=== PATIENT | female | born 1965 | race Caucasian/White ===

== ENCOUNTER 2018-03-22 15:45 | Emergency (ER) | payer MEDICAID ==
[~2018-03-22] VITALS: Ht 157.5 cm; Wt 81.6 kg
[2018-03-22 15:53] VITALS: Ht 157.5 cm; Wt 81.6 kg
[2018-03-22 17:13] VITALS: BP 130/84
== END 2018-03-22 17:13 | disposition home or self-care (01) ==
LOC: ED 15:45
PROC: 2W2DX4Z Dressing of Left Lower Arm using Bandage (ICD-10-PCS; principal; 2018-03-22)
PROC: 3E0234Z Introduction of Serum, Toxoid and Vaccine into Muscle, Percutaneous Approach (ICD-10-PCS; 2018-03-22)
DX: T23.272A Burn of second degree of left wrist, initial encounter (principal); X10.1XXA Contact with hot food, initial encounter; Y92.9 Unspecified place or not applicable
CPT/HCPCS: 90715; A4570

== ENCOUNTER 2019-05-24 13:25 | Emergency (ER) | payer MEDICAID ==
[~2019-05-24] VITALS: Ht 154.9 cm; Wt 83.5 kg
[2019-05-24 13:59] VITALS: BP 135/91; Ht 154.9 cm; Wt 83.5 kg
== END 2019-05-24 16:09 | disposition left against medical advice (07) ==
LOC: ED 13:25
DX: Z53.21 Procedure and treatment not carried out due to patient leaving prior to being seen by health care provider (principal)

== ENCOUNTER 2019-05-24 17:51 | Inpatient (IN) | payer MEDICAID ==
[~2019-05-24] VITALS: Ht 154.9 cm; Wt 80.7 kg
[2019-05-24 18:07] VITALS: Ht 154.9 cm; Wt 80.7 kg
--- NOTE | 2019-05-24 19:16 | NUR ---
DR. COLLADO AT BEDSIDE MSE
--- NOTE | 2019-05-24 19:30 | NUR ---
PT. ARRIVED TO ER C/O SWELLING & PAIN TO RIGHT CHEEK, PT. STATED SHE WENT TO THE DENTIST 4 DAYS AGO, SHE WAS GIVEN ANTIOBIOTICS, PT.STATES THE MEDICATION IS NOT HELPING AND SHE FEELS THAT IS SPREADING, SHE WENT TO DENTIST AGAIN TODAY, DENTIST REFERRED HER TO COME TO ER, PT. LAYING IN BED, 10/10 PAIN, SHARP X 4 DAYS, SWELLING NOTED ON RIGHT CHEEK, PT. DENIES TRAUMA, DENIES ANY DENTAL WORK, PT. STATES SHE WAST TOLD BY DENIES SHE HAS A VERY BAD INFECTION, DENIES N/V/D, DENIES FEVER & CHILLS, DENIES CHEST PAIN, DENIES URINARY SYMPTOMS, REPOSITIONED PT. FOR COMFORT, WILL MONITOR.
[2019-05-24 19:59] LABS: BASOPHIL % 0.4 % (0-2); PLATELET COUNT 318 x10^3mcL (130-400)
[2019-05-24 20:01] LABS: RED CELL DISTRIBUTION WIDTH 14.8 % (11.5-14.5)
[2019-05-24 20:13] LABS: CALCIUM 8.1 mg/dL (8.5-10.1); CARBON DIOXIDE 24.3 mmol/L (21-32); CREATININE SERUM 1.1 mg/dL (0.6-1.0); POTASSIUM SERUM 3.7 mmol/L (3.5-5.1)
--- NOTE | 2019-05-24 20:37 | NUR ---
PT. TO CT [facility]IA [facility]
[2019-05-24 21:10] LABS: ERYTHROCYTE SED RATE 21 mm/hr (0-30)
--- NOTE | 2019-05-24 22:34 | NUR ---
PT. LAYING IN BED, AAOX4, NO ACUTE DISTRESS NOTED, PT. STATES SHE IS FEELING A LITTLE BETTER WITHT THE PAIN MEDICATION, PAIN LEVEL HAS GONE DOWN TO 8/10, PENDING RESULTS, VSS, WILL MONITOR, REPOSITIONED FOR COMFORT, PT. DENIES DIFFICULTY SPEAKING OR SWALLOWING.
--- NOTE | 2019-05-24 23:17 | NUR ---
PT. C/O PAIN, 06/14, STATING IT IS GETTING WORSE AGAIN, MADE AWARE, NEW ORDER OBTAINED FOR PAIN MEDICATION, CARRIED OUT, PT. TOLERATED WELL, SEE EMAR WILL MONITOR.
--- NOTE | 2019-05-24 23:55 | NUR ---
REPORT GIVEN TO JEREMIAH OBREGON TO ASSUME PT CARE
[2019-05-25 00:29] VITALS: BP 98/50
--- NOTE | 2019-05-25 00:40 | NUR ---
RECEIVED PT FROM ER, PT ADMIT FOR FACIAL CELLULITIS, FAILED OUT PT ATB. PT IS A/O X4, VERBAL REPSONSIVE, LUNG SOUND CLEAR BILATERAL, NO COUGH, NO SOB, DENY ANY CHEST PAIN OR DISCOMFORT, BOWEL SOUND PRESENT ALL 4 QUADRANTS, NO DISTENTION, BUT PT C/O N/V, PT STATE HASN'T EAT FOR 4 DAYS DUE TO PAIN, DR. GOOD NOTED. PEDAL PULSE PRESENT BOTH FEET, NO EDEMA, IV AT LEFT AC, NO LEAKING, NO INFILTRAITON. PT'S RIGHT FACE IS SWELLING. ASSESS WITH DR. GOOD INSIDE THE MOUTH, THERE IS NO OPEN WOUND OR DRAINAGED NOTED. PT C/O RIGHT FACE 06/14, NORCO IS GIVEN TO PT. ALL ADLS ASSIST, ALL NEED MET, CALL LIGHT IN REACH, WILL CONTINUE TO MONITOR.
--- NOTE | 2019-05-25 00:40 | NUR ---
PT C/O R FACIAL PAIN 06/14. THROBBING FROM TOP OF HEAD TO R SIDE OF NECK. NORCO GIVEN PER ORDER. ALSO C/O NAUSEA, NO VOMITING. ZOFRAN GIVEN. ORIENTED TO DEVICES AND SURROUNDINGS. CALL LIGHT WITHIN REACH, BED AT LOWEST POSITION. WILL CONTINUE TO MONITOR.
[2019-05-25 01:07] LABS: microscopic required? NO
[2019-05-25 01:24] LABS: UA SPECIFIC GRAVITY <=1.005 (1.005-1.035); urine erythrocyte NEGATIVE (NEGATIVE)
--- NOTE | 2019-05-25 02:50 | NUR ---
PT RESTING IN BED WITH EYES CLOSED. LAYING ON R SIDE. NO SIGNS OF DISTRESS NOTED. BREATHING EVEN/UNLABORED ON RA. CALL LIGHT WITHIN REACH, BED AT LOWEST POSITION. WILL CONTINUE TO MONITOR.
--- NOTE | 2019-05-25 05:20 | NUR ---
PT RESTING IN BED WITH EYES CLOSED. SNORING. AWAKENS WITH TACTILE STIMULI. BREATHING EVEN/UNLABORED ON RA. DUE MEDS GIVEN. PT DENIES ANY PAIN AT THIS TIME. CALL LIGHT WITHIN REACH, BED AT LOWEST POSITION. WILL CONTINUE TO MONITOR.
[2019-05-25 05:42] VITALS: BP 94/49
--- NOTE | 2019-05-25 05:43 | NUR ---
BP 94/49, MAP 64, HR 74. PT DENIES ANY DIZZINESS OR LIGHTHEADEDNESS. DR. YUSUF MADE AWARE. NO CHANGES IN ORDERS. STATED TO LET HIM KNOW IF MAP DROPS LOWER.
--- NOTE | 2019-05-25 05:58 | NUR ---
ZOFRAN GIVEN FOR COMPLAINT OF NAUSEA. NO EMESIS. GUEST AT BEDSIDE. WILL MONITOR FOR RELIEF.
[2019-05-25 06:39] LABS: CALCIUM 7.8 mg/dL (8.5-10.1); CARBON DIOXIDE 21.2 mmol/L (21-32); CHLORIDE SERUM 104 mmol/L (98-107); GFR1 > 60 mL/min; GLUCOSE SERUM 101 mg/dL (74-106); POTASSIUM SERUM 3.9 mmol/L (3.5-5.1); SODIUM SERUM 136 mmol/L (136-145)
[2019-05-25 07:15] LABS: BASOPHIL % 0.3 % (0-2); PLATELET COUNT 300 x10^3mcL (130-400); RED CELL DISTRIBUTION WIDTH 14.9 % (11.5-14.5)
--- NOTE | 2019-05-25 07:47 | NUR ---
RECEIVED IN NO RESP. DISTRESS, AWAKE ALERT AND ORIENTED. BP SLIGHTLY LOW BUT PT ASYMPTOMATIC. DENIES LIGHTHEADED OR DIZZINESS. NO C/O PAIN OR DISCOMFORT AT THIS TIME.IVF INFUSING WELL AND SITE CLEAR. CALL LIGHT WITHIN REACH. WILL CONTINUE WITH PLAN OF CARE.
[2019-05-25 08:06] VITALS: BP 92/51
--- NOTE | 2019-05-25 12:39 | NUR ---
PT C/O RT FACIAL AND HEADACHE 06/14. MEDICATED WITH NORCO PER ORDER.
--- NOTE | 2019-05-25 15:42 | NUR ---
PT RESTING IN NO DISTRESS. NO C/O PAIN AT THIS TIME.
[2019-05-25 16:59] VITALS: BP 90/58
--- NOTE | 2019-05-25 18:25 | NUR ---
PT REMAINS IN NO DISTRESS, AWAKE, ALERT AND ORIENTED. NO C/O PAIN OR DISCOMFORT AT THIS TIME. VS WNL. IVF INFUSING WELL AND SITE CLEAR. FAMILY AT BEDSIDE. CALL LIGHT WITHIN REACH. WILL BE ENDORSED TO INCOMING SHIFT.
[2019-05-25 19:23] VITALS: BP 103/52
--- NOTE | 2019-05-25 19:25 | NUR ---
RECIEVED PT IN NO ACUTE DISTRESS. AOX4. MED SURG. BREATHING E/U. SWELLING NOTED TO R SIDE OF FACE. C/O FACIAL PAIN/HEADACHE 04/14, WILL MEDICATE PER EMAR. IV TO RFA, PATENT. BED IN LOWEST POSITION, 2 SIDE RAILS UP, CALL LIGHT IN REACH. INSTRUCTED TO CALL FOR ASSISTANCE.
--- NOTE | 2019-05-26 01:07 | NUR ---
RESTING IN BED WITH EYES CLOSED. BREATHING E/U. NO ACUTE DISTRESS NOTED. WILL CONTINUE TO MONITOR.
[2019-05-26 04:50] VITALS: BP 95/57
[2019-05-26 06:41] LABS: BASOPHIL % 0.6 % (0-2); PLATELET COUNT 268 x10^3mcL (130-400)
[2019-05-26 06:49] LABS: T3 TOTAL 0.89 ng/mL
[2019-05-26 06:50] LABS: CALCIUM 7.9 mg/dL (8.5-10.1); CARBON DIOXIDE 26.7 mmol/L (21-32); CHLORIDE SERUM 108 mmol/L (98-107); CREATININE SERUM 0.8 mg/dL (0.6-1.0); GFR1 > 60 mL/min; GLUCOSE SERUM 118 mg/dL (74-106); MAGNESIUM 1.8 mg/dL (1.8-2.4); PHOSPHOROUS 3.2 mg/dL (2.5-4.9); POTASSIUM SERUM 4.2 mmol/L (3.5-5.1); SODIUM SERUM 141 mmol/L (136-145)
[2019-05-26 07:10] LABS: FREE T4 1.04 ng/dL (0.76-1.46); FREE THYROXINE INDEX 2.5 ug/dL (1.4-4.5)
--- NOTE | 2019-05-26 07:26 | NUR ---
MEDICATED WITH NORCO X 3 OVERNIGHT WITH GOOD EFFECT FOR R FACIAL PAIN 04/14. NO ACUTE DISTRESS NOTED. NO ACUTE CHANGES. ENDORSED TO ONCOMING RN,
--- NOTE | 2019-05-26 07:30 | NUR ---
PT ENDORSE TO ME THIS MORNING, LAYING IN BED RESTING, AA/O X4, BREATHING EVEN AND UNLABORED ON RA, NO ACUTE RESP DISTRESS OR SOB NOTED. MEDSURG/ DENIES ANY CP OR PRESSURE. RIGHT SIDE OF FACE BY CHEEK AND RIGHT EYE SWELLING NOTED. VOIDS FREELY. AMB. IV TO THE L HAND INTACT AND PATENT/ NO REDNESS OR SWELLING NOTED/ INFUSING AT 125/ML/HR. CALL LIGHT IN REACH .BED IN LOW POSITTION. WILL CONTINUE TO MONITOR.
[2019-05-26 08:01] VITALS: BP 112/64
[2019-05-26 11:24] LABS: AMPHETAMINE QUAL UR POSITIVE (See below)
[2019-05-26 12:18] VITALS: BP 107/59
--- NOTE | 2019-05-26 13:12 | NUR ---
TALKED TO BESS MONTIEL, OK TO HANG VANCOCIN/ IS AWARE OF CURRENT VANCO TROUGH.
--- NOTE | 2019-05-26 14:50 | NUR ---
PT TOLERATED 100% OF REG DIET FOR LUNCH. NO N/V OR DISCOMFORT NOTED.
--- NOTE | 2019-05-26 16:04 | NUR ---
PT C/O OF RIGHT EYE AND FACE DISCOMFORT 10/10, MEDICATED PER EMAR.
[2019-05-26 16:48] VITALS: BP 115/53
--- NOTE | 2019-05-26 18:39 | NUR ---
NO ACUTE CHANGES AT THIS TIME. NO ACUTE RESP DISTRESS OR SOB NOTED. DENIES ANY CP OR PRESSURE.DENIES ANY RIGHT FACIAL PAIN OR DISCOMFORT/ STATED NORCO HELPED WITH PAIN. TOLERATED 100% OF DINNER. SUPPLIES GIVEN TO CLEAN UP. WILL ENDORSE TO INCOMING RN.
--- NOTE | 2019-05-26 19:30 | NUR ---
RECIEVED PT IN NO ACUTE DISTRESS. AOX4. MED SURG. BREATHING E/U. SWELLING NOTED TO R SIDE OF FACE. DENIES PAIN. IV TO LH, PATENT. SL TO LAC. BED IN LOWEST POSITION, 2 SIDE RAILS UP, CALL LIGHT IN REACH. INSTRUCTED TO CALL FOR ASSISTANCE.
[2019-05-26 19:34] VITALS: BP 106/67
--- NOTE | 2019-05-27 02:07 | NUR ---
RESTING WITH EYES CLOSED. BREATHING E/U. NO ACUTE DISTRESS NOTED. WILL CONTINUE TO MONITOR.
[2019-05-27 04:51] VITALS: BP 121/67
--- NOTE | 2019-05-27 06:22 | NUR ---
SWELLING TO R SIDE OF FACE IMPROVED. NO C/O PAIN OVERNIGHT. NO ACUTE DISTRESS NOTED. NO ACUTE CHANGES. WILL ENDORSE TO ONCOMING RN.
[2019-05-27 06:53] LABS: BASOPHIL % 0.6 % (0-2); PLATELET COUNT 266 x10^3mcL (130-400); RED CELL DISTRIBUTION WIDTH 14.6 % (11.5-14.5)
[2019-05-27 07:06] LABS: CALCIUM 7.8 mg/dL (8.5-10.1); CARBON DIOXIDE 26.4 mmol/L (21-32); CHLORIDE SERUM 108 mmol/L (98-107); CREATININE SERUM 0.8 mg/dL (0.6-1.0); GFR1 > 60 mL/min; GLUCOSE SERUM 98 mg/dL (74-106); MAGNESIUM 1.8 mg/dL (1.8-2.4); PHOSPHOROUS 2.8 mg/dL (2.5-4.9); POTASSIUM SERUM 3.4 mmol/L (3.5-5.1); SODIUM SERUM 143 mmol/L (136-145)
--- NOTE | 2019-05-27 07:30 | NUR ---
PT ENDORSE TO ME THIS MORNING,LAYING IN BED RESTING. AA/O X4, BREATHING EVEN AND UNLABORED ON RA, NO ACUTE RESP DISTRESS OR SOB NOTED. MEDSURG/ DENIES ANY CP OR PRESSURE. AMB/ VOIDING FREELY. IS C/O OF RIGHT SIDED FACE DISCOMFORTED, STATED RIGHT EYE FEELS WORSE/ DR GARCIA MADE AWARE. REMOVED IV TO THE LHAND/SWELLING NOTED/ CATHETHER TIP INTACT. IV TO THE LAC INTACT AND PATENT/ NO REDNESS OR SWELLING NOTED. CALL LIGHT IN REACH. WILL CONTINUE TO MONITOR.
[2019-05-27 09:03] VITALS: BP 109/62
[2019-05-27 12:08] VITALS: BP 118/73
--- NOTE | 2019-05-27 14:04 | NUR ---
Initial Nutrition Assessment: Tari Lucero 240-B Dx: Facial cellulitis with failed outpatient antibiotics PMHx: None PSHx: None Labs: (05/27) K:3.4L, H/H:11.2/34L Meds: Avalon, Tylenol, Vancocin, Vancomycin, Zofran, Zosyn Diet: Regular PO Intake: (05/26) B:80% FL D:20% (05/27) B:100% Ht: 61in, 5'1" Wt: 177#,80.739kg BMI: 33.6kg/m2 (obese) Bed scale: IBW:105#48kg %IBW:169% UBW: unable to obtain Age: 53 y/o female Food Allergies: NKFA Skin:right facial swelling Liban: 22 Edema: none GI:active bowel sounds Last BM:05/23 Nursing Trigger: N/V/D>3days and poor PO intake>3days Per H&P, pt came to the ER from home for facial swelling and pain. Pt reports to not being able to eat for the past 4 days due to pain and admits to having nausea but no vomiting. Per progress note 05/26, no new complaints. Pt stills feels swelling to right side of her face. Pt is pending ID consult. During visit, pt was seen asleep and unarousable. PO intake improving and per MD note, no GI issues. Problem with: N/V/D/C:No Problems with: Chewing/ Swallowing: No Current appetite: fair to good Recent wt change:unable to obtain info. %wt change:N/A Vitamin/Supplement use:none reported on H&P Special diet at home: none noted in admission assessment Physical activity:unable to obtain info. Nutrition education given : no, pt asleep and unarousable Food-drug interactions? Avalon, constipation Education given?No Estimated Nutritional Needs Based on ideal body weight 48kg due to pt being obese Energy:1200-1440kcal/d (25-30kcal/kg) Protein:48 g/d (1g/kg) Fluid: 1200-1440ml/d (1 ml/kcal) or per doctor Nutrition Diagnosis 1. Obese related to possible excessive caloric intake as evidenced by BMI:33.6kg/m2 and 169% of IBW. Intervention 1. Recommend continue with Regualr diet. Monitor/Evaluate Goal: PO intake at least 75% of estimated needs Monitor: PO intake, Labs, GI function F/U in 7 days as low risk:06/03
--- NOTE | 2019-05-27 14:05 | NUR ---
1. Recommend continue with Regualr diet.
--- NOTE | 2019-05-27 14:45 | NUR ---
PT TOLERATED 100% LUNCH/ DENIES ANY DISCOMFORT. ICE PACK GIVEN FOR RIGHT EYE SWELLING. WILL CONTINUE TO MONITOR.
[2019-05-27 17:51] VITALS: BP 127/75
--- NOTE | 2019-05-27 18:23 | NUR ---
PT LAYING IN BED RESTING, EDUCATED PT SHE WILL REMAIN NPO AT MIDNIGHT FOR CT GUIDED TOMORROW AT 9AM, PT AGREED. IV TO THE LAC INTACT AND PATENT/ HEPLOCKED/ NO REDNESS OR SWELLING NOTED. WILL ENDORSE TO INCOMING RN.
--- NOTE | 2019-05-27 19:39 | NUR ---
AWAKE AND ALERT, BREATHING EVEN AND UNLABORED ON ROOM AIR. NOTED SWELLING TO RIGHT SIDE OF FACE AND RIGHT PERIORBITAL AREA. NO ERYTHEMA NOTED. SALINE LOCK TO LEFT AC.
[2019-05-27 20:18] VITALS: BP 117/67
--- NOTE | 2019-05-27 22:40 | NUR ---
EYES CLOSED, BREATHING EVEN AND UNLABORED ON ROOM AIR. CALL LIGHT WITHIN EASY REACH.
--- NOTE | 2019-05-27 23:56 | NUR ---
DR. LOYOLA IN TO SEE PT. PT STATED "THIS IS THE FIRST DAY I FEEL BETTER, NO PAIN"
[2019-05-28] VITALS (8 sets, daily range): BP systolic 121–141; BP diastolic 66–84
--- NOTE | 2019-05-28 00:22 | NUR ---
asked for a sleeping pill. paged dr. rivera
--- NOTE | 2019-05-28 00:30 | NUR ---
informed dr. rivera pt asking for a sleeping pill
--- NOTE | 2019-05-28 06:30 | NUR ---
KEPT NPO SINCE MIDNIGHT. EYES CLOSED, EASILY AWAKENED. BREATHING EVEN AND UNLABORED. CALL LIGHT WITHIN EASY REACH. SALINE LOCK TO RIGHT FOREARM FREE FROM ERYTHEMA OR SWELLING.
[2019-05-28 07:07] LABS: CALCIUM 8.4 mg/dL (8.5-10.1); CARBON DIOXIDE 26.7 mmol/L (21-32); CHLORIDE SERUM 108 mmol/L (98-107); CREATININE SERUM 0.8 mg/dL (0.6-1.0); GFR1 > 60 mL/min; GLUCOSE SERUM 93 mg/dL (74-106); POTASSIUM SERUM 3.3 mmol/L (3.5-5.1); SODIUM SERUM 145 mmol/L (136-145)
--- NOTE | 2019-05-28 07:19 | NUR ---
EYES CLOSED, BREATHING EVEN AND UNLABORED. IN NO ACUTE DISTRESS. ENDORSED TO NURSE LING
--- NOTE | 2019-05-28 07:20 | NUR ---
RECEIVED PT'S REPORT FROM LEAVING NURSE. PT REST ON BED, NO COMPLAIN OF PAIN AT THIS TIME. PT'S AWARE ABOUT BIOPSY. HOLD PT'S MORNING TRAY. IV SITE SALINE LOCK.
--- NOTE | 2019-05-28 08:43 | NUR ---
PHYSICAL THERAPIST AT BEDSIDE. PT'S BP RECHECKED 123/78, HR 114. WILL CONTINUE TO MONITOR.
--- NOTE | 2019-05-28 10:10 | NUR ---
PT BACK FROM THYROID BIOPSY, SITE ON R NECK COVERED BY BANDAID, NO ACTIVE BLEEDING NOTED. PT DENIED DISCOMFORT. PT'S VS CHECKED: TEMP 98.3, HR 75, BP 141/84, O2 SAT 96%. WILL CONTINUE TO MONITOR.
--- NOTE | 2019-05-28 10:49 | NUR ---
PT COMPLAIN OF NAUSEA AFTER BREAKFAST. ZOFRAN GIVEN PER PRN ORDER.
--- NOTE | 2019-05-28 11:55 | NUR ---
PT IS RESTING, PT STATED BIOPSY PAIN WITHIN TOLERANCE, NAUSEA RESOLVED BY MEDS.
[2019-05-28] MEDS ORDERED: AUG500 PO (12:58)
--- NOTE | 2019-05-28 15:16 | NUR ---
PT IS READY TO DISCHARGE. DISCHARGE INSTRUCTION GIVEN, EMPHASIZED FOLLOW UP APPOINTMENT ABOUT BIOPSY RESULT. PT'S VS STABLE AFTER BIOPSY, BIOPSY SITE BANDAGE CDI. IV AND ID BAND REMOVED. PT DENIED DIZZINESS. SHE WILL DRIVE HOME SELF. STUDENT NURSE WALKED PT OUTOF UNIT.
== END 2019-05-28 15:13 | disposition home or self-care (01) | DRG 114 ==
LOC: ED 17:51 → MU 23:29
PROVIDERS: Emergency Medicine; ADMIT Internal Medicine
DX: K04.7 Periapical abscess without sinus (principal); N17.0 Acute kidney failure with tubular necrosis; L03.211 Cellulitis of face; E04.1 Nontoxic single thyroid nodule; Z68.34 Body mass index [BMI] 34.0-34.9, adult
CPT/HCPCS: 60100; 84439; G0378; J2001; J2270; J2405; J2543; J3370; J3490; J7030; J7040; Q0092; Q9967

== ENCOUNTER 2019-11-11 12:18 | Emergency (ER) | payer MEDICAID ==
[~2019-11-11] VITALS: Ht 157.5 cm; Wt 89.4 kg
[~2019-11-11 12:18] MED LIST: AUG500 PO
[2019-11-11 12:33] VITALS: Ht 157.5 cm; Wt 89.4 kg
[2019-11-11 13:13] VITALS: BP 148/88
== END 2019-11-11 13:13 | disposition home or self-care (01) ==
LOC: ED 12:18
DX: K04.7 Periapical abscess without sinus (principal)
CPT/HCPCS: J2270

== ENCOUNTER 2019-11-29 04:35 | Emergency (ER) | payer MEDICAID ==
[~2019-11-29] VITALS: Ht 157.5 cm; Wt 78.0 kg
[2019-11-29 04:44] VITALS: Ht 157.5 cm; Wt 78.0 kg
[2019-11-29 06:55] VITALS: BP 138/87
== END 2019-11-29 06:50 | disposition home or self-care (01) ==
LOC: ED 04:35
DX: T78.40XA Allergy, unspecified, initial encounter (principal); X58.XXXA Exposure to other specified factors, initial encounter
CPT/HCPCS: J1200; J2930

== ENCOUNTER 2020-01-10 22:28 | Emergency (ER) | payer MEDICAID ==
[~2020-01-10] VITALS: Ht 157.5 cm; Wt 77.1 kg
[2020-01-10 22:35] VITALS: Ht 157.5 cm; Wt 77.1 kg
[2020-01-11 01:49] VITALS: BP 117/78
== END 2020-01-11 01:49 | disposition home or self-care (01) ==
LOC: ED 22:28
DX: S82.61XA Displaced fracture of lateral malleolus of right fibula, initial encounter for closed fracture (principal); X50.1XXA Overexertion from prolonged static or awkward postures, initial encounter; Y93.89 Activity, other specified; Y92.89 Other specified places as the place of occurrence of the external cause; Y99.8 Other external cause status
CPT/HCPCS: Q0092

== ENCOUNTER 2020-02-15 22:05 | Emergency (ER) | payer MEDICAID ==
[~2020-02-15] VITALS: Ht 157.5 cm; Wt 84.4 kg
[2020-02-15 22:20] VITALS: BP 125/88; Ht 157.5 cm; Wt 84.4 kg
== END 2020-02-15 23:01 | disposition home or self-care (01) ==
LOC: ED 22:05
DX: K04.7 Periapical abscess without sinus (principal)